=== PATIENT | female | born 1965 | race Caucasian/White ===

== ENCOUNTER 2019-06-18 12:40 | Emergency (ER) | payer OTHER, BC ==
[2019-06-18 13:31] LABS: ADD MAN DIFF? NO
[2019-06-18] MEDS: CEFTRIAXONE 1 GM/50 ML (PMX) 50 ML IVPB (13:32)
[2019-06-18 13:33] LABS: WHITE BLOOD COUNT 9.3 10^3/ul (4.8-10.8)
[2019-06-18 13:33] LABS: BASOPHILS % 0.4 % (0.0-2.0); EOSINOPHILS # 0.1 10^3/ul (0.0-0.5); EOSINOPHILS % 0.5 % (0.0-7.0); HEMATOCRIT 43.4 % (37.0-47.0); HEMOGLOBIN 14.3 g/dl (12.0-16.0); LYMPHOCYTES # 3.2 10^3/ul (0.8-2.9); LYMPHOCYTES % 34.4 % (15.0-51.0); MEAN CORPUSCULAR HEMOGLOBIN 29.3 pg (29.0-33.0); MEAN CORPUSCULAR HGB CONC 32.9 g/dl (32.0-37.0); MEAN CORPUSCULAR VOLUME 88.9 fl (82.0-101.0); MEAN PLATELET VOLUME 11.5 fl (7.4-10.4); MONOCYTE # 0.8 10^3/ul (0.3-0.9); MONOCYTES % 8.3 % (0.0-11.0); NEUTROPHIL # 5.2 10^3/ul (1.6-7.5); NEUTROPHILS % 56.2 % (39.0-77.0); PLATELET COUNT 219 10^3/UL (140-415); RED BLOOD COUNT 4.88 10^6/ul (4.20-5.40); RED CELL DISTRIBUTION WIDTH 12.2 % (11.5-14.5)
[2019-06-18] MEDS: ACETAMINOPHEN 325 MG TAB PO (13:33)
[2019-06-18] MEDS: KETOROLAC 15 MG INJ IV (13:33)
[2019-06-18] MEDS: SOD CHLORIDE 0.9% 500 ML IV (13:34)
[2019-06-18 13:54] LABS: ANION GAP 6 (5-13); BLOOD UREA NITROGEN 18 mg/dl (7-20); CALCIUM 9.7 mg/dl (8.4-10.2); CARBON DIOXIDE 33 mmol/L (21-31); CHLORIDE 99 mmol/L (97-110); CREATININE 0.59 mg/dl (0.44-1.00); Estimated GFR > 60 mL/min (>60); GLUCOSE 136 mg/dl (70-220); POTASSIUM 3.7 mmol/L (3.5-5.1); SODIUM 138 mmol/L (135-144)
[2019-06-18] MEDS: VANCOMYCIN 1 GM (PMX) 250 ML IVPB (14:07)
== END 2019-06-18 16:19 | disposition home or self-care (01) ==
LOC: FTE 16:19
DX: H66.92 Otitis media, unspecified, left ear (principal); I10 Essential (primary) hypertension; J32.0 Chronic maxillary sinusitis
CPT/HCPCS: 70480; 80048; 81025; 85025; 96365; 96366; 96368; 96375; 99285-25

== ENCOUNTER 2019-06-27 18:53 | Emergency (ER) | payer OTHER | END 2019-06-27 19:52 | disposition home or self-care (01) | LOC: E/R 19:52 | DX: H60.92 Unspecified otitis externa, left ear (principal); I10 Essential (primary) hypertension | CPT/HCPCS: 99283; Z7502 ==